=== PATIENT | female | born 1985 | race Caucasian/White ===

== ENCOUNTER 2019-10-28 20:00 | Outpatient (CLI) | payer MEDICAID, SELFPAY | END 2019-10-28 20:01 | disposition home or self-care (01) | LOC: SLEEP 10-29 09:24 | PROVIDERS: Family Provider Family Medicine; PCP Family Medicine; Visit Provider Registered Nurse | DX: G47.33 Obstructive sleep apnea (adult) (pediatric) (principal) | CPT/HCPCS: 95810; 95811 ==

== ENCOUNTER → 2020-09-06 09:08 | Outpatient (BNVA) | payer BC, MEDICAID, SELFPAY | PROVIDERS: Family Provider Family Medicine; PCP Family Medicine; Visit Provider Family Medicine | DX: R53.83 Other fatigue (principal); Z83.49 Family history of other endocrine, nutritional and metabolic diseases; Z13.6 Encounter for screening for cardiovascular disorders; R53.82 Chronic fatigue, unspecified; F41.1 Generalized anxiety disorder; G47.33 Obstructive sleep apnea (adult) (pediatric); Z68.38 Body mass index [BMI] 38.0-38.9, adult; R03.0 Elevated blood-pressure reading, without diagnosis of hypertension; F17.210 Nicotine dependence, cigarettes, uncomplicated | CPT/HCPCS: 80053; 80061; 82607; 82652; 84443; 85025 ==

== ENCOUNTER 2021-07-29 08:19 | Emergency (ER) | payer BC, MEDICAID, SELFPAY ==
[2021-07-29 08:31] VITALS: PULSE 121; RESP 26; TEMP 36.4; O2SAT 96; BMI 33.3
--- NOTE | 2021-07-29 08:53 | W.ED.BACK ---
HPI - Back Pain/Injury General: Chief Complaint: Back Pain/Injury Stated Complaint: BACK INJURY YESTERDAY Time Seen by Provider: 07/29/21 08:45 Source: patient Mode of arrival: ambulatory Limitations: no limitations History of Present Illness: HPI Narrative: 35-year-old female presents to the ER today for low back pain x2 days. Patient reports about 10 years ago she injured her back when carrying a stroller and has had pain off and on since. Patient reports she has always been able to work through the pain however about 2 days ago she felt a twinge of pain and then last night was walking quickly and felt sudden sharp pain in her low back. Patient reports since then she has been unable to walk without severe pain pain. Patient reports she was unable to get out of bed this morning and almost had to call an ambulance. She denies any pain radiating down either leg. Patient denies any loss of bowel or bladder control. Patient denies any numbness. Patient reports pain is located in the low back and does not radiate to the right or to the left. Patient took [id number] medications with minimal relief. MD elicited complaint: back pain Pertinent past history: prior back pain Onset (ago): day(s) Timing: constant Severity: severe Similar Symptoms Previously: Yes Quality: sharp and aching Location: lumbar spine and sacrum Radiation: none Exacerbating factors: movement, sitting upright and walking Relieving factors: none Context: unknown Associated symptoms: Deny abdominal pain, chills, fever(s), nausea or vomiting Treatments prior to arrival: NSAIDS and acetaminophen Review of Systems General: Reports: 10 or more systems reviewed and unremarkable except in HPI and below Const: Denies: fever(s), chills or body aches ENMT: Denies: throat pain, nasal discharge or nasal congestion Card: Denies: chest pain or palpitations Resp: Denies: dyspnea, productive cough or wheezing GI: Denies: abdominal pain, nausea, vomiting, diarrhea or constipation : Denies: flank pain, difficulty voiding or urinary incontinence Musc: Reports: back pain; Denies: neck pain, extremity pain or joint pain Skin/Breast: Denies: rash or pruritus Neuro: Denies: headache(s), numbness in extremities or dizziness PFS ED PFSH: Medical History Borderline personality disorder Chronic post-traumatic stress disorder Generalized anxiety disorder Major depressive disorder, recurrent, moderate Nicotine dependence, cigarettes, uncomplicated Obstructive sleep apnea (adult) (pediatric) Panic attacks Psychiatric care Social History Smoking and tobacco status: never smoked Current gender identity: Female Female Reproductive History: Spontaneous abortions: No Physical Exam Const: COMMON NORMALS: patient oriented x3, no limitations and healthy appearing GENERAL APPEARANCE: not comfortable (pt appears uncomfortable and tearful) NUTRITIONAL APPEARANCE: obese HENMT: COMMON NORMALS: normocephalic, external ears normal and Normal external nose present HEAD & SCALP: normocephalic NOSE: Normal external nose present EXTERNAL EAR: Yes external ears normal Eye: COMMON NORMALS: conjunctivae normal GENERAL EYE: appearance normal, both eyes and all related structures CONJUNCTIVA: Yes conjunctivae normal Lymph: LYMPHATIC: no lymphadenopathy noted Resp: COMMON NORMALS: normal respiratory effort EFFORT & INSPECTION: Yes able to speak in complete sentences Cardio: COMMON NORMALS: regular rate and regular rhythm RATE: regular rate RHYTHM: regular rhythm GI: COMMON NORMALS: Soft to palpation and non-tender PALPATION: Yes Soft to palpation Back/Pelvis: LUMBAR SPINE/LOWER BACK: Yes normal to inspection, Yes ROM limited, Yes pain with ROM, Yes lumbar spinal tenderness, Yes paraspinal muscle tenderness (mild) Lumbar paraspinal muscle tenderness: bilateral, No paraspinal muscle spasm and Yes straight leg raise negative bilaterally Extremity: COMMON NORMALS: full ROM Neuro: COMMON NORMALS: patient oriented x3, moves all extremities and no sensory deficits noted Psych: COMMON NORMALS: mental status grossly normal, Normal thought process present, cooperative and normal affect THOUGHT PROCESS: Normal thought process present Skin: COMMON NORMALS: no rashes or lesions noted GENERAL SKIN EXAM: no rashes or lesions noted Course ED course: Patient presents to the ER today for acute low back pain x2 days. Patient has a history of some low back pain but this is significantly worse. Patient denies any neurological deficits at this time. We'll get x-ray of the low back as she has never had imaging done. We'll give patient Toradol and muscle relaxer in the ER for pain. Vital Signs: Vital signs: Vital Signs Temperature 98.6 F 07/29/21 09:04 Pulse Rate 99 07/29/21 09:04 Respiratory Rate 22 H 07/29/21 09:04 Blood Pressure 139/91 07/29/21 09:04 Pulse Oximetry 97 07/29/21 09:04 MDM - Back Pain/Injury MDM Narrative: Medical decision making narrative: 35-year-old female presents to the ER today for acute low back pain x2 days. Patient injured back about 10 years ago and has had pain off and on but nothing to this extent. Patient is neurologically intact with no numbness, no tingling, no loss of bowel or bladder control. Patient is tender over the spine of the L-spine and sacrum. No radiating pain is noted. Imaging is negative for acute injury however patient is noted to have significant degenerative disc disease from L4-S1. Patient given Toradol and Norflex in the ER for pain. We'll send patient home with anti-inflammatory, muscle relaxer, steroid. Patient to follow-up with PCP in 1 week to discuss further imaging. Return to the ER with any new or worsening symptoms including neurological symptoms. Patient verbalized understanding and is in agreement with this treatment plan. Imaging Data^: Other Xray: Radiologist's impression: [facility] [place] [address] XRay Report Signed Patient: Peggy Alvares Unit #: [id number] : 1985 Age/Sex: 35 / F ADM Date: 07/29/21 Loc: ER Room/Bed: Attending Dr: Ordering Provider/Ordering MD: Karine Sommer Date of Service: 07/29/21 Procedure(s): XR lumbar spine 2-3V* [id number] Accession Number(s): [id number] Report Number: [id number] PROCEDURE INFORMATION: Exam: XR Lumbosacral Spine Exam date and time: 07/29/2021 9:12 AM Age: 35 years old Clinical indication: Low back pain; Additional info: Acute low back pain TECHNIQUE: Imaging protocol: XR of the lumbosacral spine. Views: 2 or 3 views. COMPARISON: No relevant prior studies available. FINDINGS: Bones/joints: No fracture, malalignment or other acute abnormalities are seen in the lumbar spine. Chronic degenerative changes are present predominantly from L4-S1 with disc space narrowing sclerosis and osteophytes. Soft tissues: Unremarkable. XR/XR lumbar spine 2-3V* [id number] IMPRESSION: DJD predominantly from L4-S1. No acute abnormality. Radiation Dose CTDIVOL = (mGy): DLP = (mGy-cm) Dictated By: Lino Brown Signed By: Lino Brown Signed Date/Time: 07/29/21 0952 Discharge Plan Discharge Patient Disposition: Home Clinical Impression: Degenerative disc disease, lumbar Acute bilateral low back pain Qualifiers: Sciatica presence: without sciatica Qualified Code(s): M54.50 - Low back pain, unspecified Condition: Stable Prescriptions: New methocarbamol 750 mg tablet 750 mg PO Q8H Qty: 21 RF: 0 Mobic 15 mg tablet 15 mg PO DAILY Qty: 14 RF: 0 Medrol (Leonides) 4 mg tablets,dose pack See Rx Instructions PO .COMPLEX Qty: 21 RF: 0 No Action albuterol sulfate [Proventil HFA] 90 mcg/actuation HFA aerosol inhaler 2 puff INHALATION QID RF: 0 Discharge Orders: Discharge ED (Routine); Ordered 07/29/21 Ordered By: Karine Sommer Referrals: Kena Reid MD [Primary Care Provider] - Discharge Diet: Usual diet Discharge Activity: Limit activity as instructed Patient Instructions: Opioid Safety Activity Restrictions/Additional Instructions: Take medications as prescribed. Recommend rest and stretching. Conservative treatment recommended including warm, moist heat alternating with ice. Topical muscle rub recommended but do not use with heat or ice. Follow-up with PCP in 7 to 10 days for further imaging. Return to the ER with any new or worsening symptoms. Coding Level of Care Code ED Engineering Technician for Jerod Fwd Exam Comprehensive
[2021-07-29 09:04] VITALS: BP 139/91; PULSE 99; RESP 22; TEMP 37; O2SAT 97
--- NOTE | 2021-07-29 09:12 | XRR_ITS ---
PROCEDURE INFORMATION: Exam: XR Lumbosacral Spine Exam date and time: 07/29/2021 9:12 AM Age: 35 years old Clinical indication: Low back pain; Additional info: Acute low back pain TECHNIQUE: Imaging protocol: XR of the lumbosacral spine. Views: 2 or 3 views. COMPARISON: No relevant prior studies available. FINDINGS: Bones/joints: No fracture, malalignment or other acute abnormalities are seen in the lumbar spine. Chronic degenerative changes are present predominantly from L4-S1 with disc space narrowing sclerosis and osteophytes. Soft tissues: Unremarkable. XR/XR lumbar spine 2-3V* [id number] IMPRESSION: DJD predominantly from L4-S1. No acute abnormality. Radiation Dose CTDIVOL = (mGy): DLP = (mGy-cm)
[2021-07-29] MEDS: orphenadrine 30 mg/mL Inj 2 mL IM (09:21)
[2021-07-29] MEDS: ketorolac 30 mg/mL INJ IM (09:22)
== END 2021-07-29 10:31 | disposition home or self-care (01) ==
PROVIDERS: Emergency Provider Physician Assistant; PCP Family Medicine
DX: M51.36 Other intervertebral disc degeneration, lumbar region (principal)
CPT/HCPCS: 72100; 96372; 99283; 99291; J1885; J2360

== ENCOUNTER → 2021-08-08 10:58 | Outpatient (BNVA) | payer BC, MEDICAID, SELFPAY | PROVIDERS: PCP Family Medicine; Referring Provider Physician Assistant; Visit Provider Orthopaedic Surgery | DX: M54.9 Dorsalgia, unspecified (principal); M47.816 Spondylosis without myelopathy or radiculopathy, lumbar region | CPT/HCPCS: 72120 ==

== ENCOUNTER 2021-08-21 08:47 | Outpatient (CLI) | payer BC, MEDICAID, SELFPAY ==
--- NOTE | 2021-08-21 | MR_ITS ---
WS: [id number] MRI HEAD WITH CONTRAST TECHNIQUE: Sagittal T1, T2 axial, T2 axial FLAIR, axial susceptibility weighted imaging, axial diffus ion weighted images, and coronal T2 images were obtained. Pre and post-T1 axial and post T1 coronal i mages. ADC and FSPGR images. CLINICAL INFORMATION: NAUSEA AND PHOTOPHOBIA COMPARISON: None. FINDINGS: No evidence of restricted diffusion to suggest acute ischemia. Ventricular system and basal cisterns are patent. No suspicious intracranial signal abnormalities. Normal posterior fossa. Normal vascular flow voids skull base. No extra-axial fluid collections. No evidence of mass or mass effect. No hemosiderin on suddenly weighted images. Normal optic chiasm and pituitary infundibulum. Temporal lobes and hippocampal formations are normal in appearance. Mild mucosal thickening ethmoid air cells and left sphenoid sinus. Small amount of fluid left sphenoid sinus. Slight mucosal thickening left ma stoid tip. No abnormal intracranial enhancement. Normal dural venous sinuses. MR/MR head wo/w con [id number] IMPRESSION: 1. No evidence of restricted diffusion to suggest acute ischemia. 2. No suspicious intracranial signal abnormalities. Normal abdi-white differen tiation. 3. No abnormal intracranial enhancement. 4. No hemosiderin on susceptibly weighted images. 5. Mild mucosal thickening in the ethmoid air cells and sphenoid sinuses. Smal l amount of fluid in the left sphenoid sinus.
[2021-08-21] MEDS: gadobenate dimeglumine 20 mL vial IV (10:07)
== END 2021-08-21 08:48 | disposition home or self-care (01) ==
LOC: RADSHAW 08:49
PROVIDERS: PCP Physician Assistant; Visit Provider Physician Assistant
DX: G43.909 Migraine, unspecified, not intractable, without status migrainosus (principal); R11.0 Nausea; H53.149 Visual discomfort, unspecified
CPT/HCPCS: 70553; A9577

== ENCOUNTER → 2021-11-23 11:48 | Outpatient (BNVA) | payer BC, MEDICAID, SELFPAY | PROVIDERS: PCP Physician Assistant; Visit Provider Specialist | DX: G43.711 Chronic migraine without aura, intractable, with status migrainosus (principal); H53.483 Generalized contraction of visual field, bilateral | CPT/HCPCS: 99204 ==

== ENCOUNTER → 2022-01-24 08:25 | Outpatient (BNVA) | payer BC, MEDICAID, SELFPAY | PROVIDERS: PCP Physician Assistant; Visit Provider Registered Nurse | DX: Z79.899 Other long term (current) drug therapy (principal); F41.1 Generalized anxiety disorder; G47.33 Obstructive sleep apnea (adult) (pediatric); F33.1 Major depressive disorder, recurrent, moderate | CPT/HCPCS: 80053; 82306; 82607; 83540; 84443; 85025 ==

== ENCOUNTER → 2022-06-21 16:30 | Outpatient (BNVA) | payer BC, SELFPAY | PROVIDERS: PCP Physician Assistant; Visit Provider Emergency Medicine | DX: R68.89 Other general symptoms and signs (principal) | CPT/HCPCS: 87071; 87400; 87426; 87880 ==

== ENCOUNTER → 2023-06-17 09:24 | Outpatient (BNVA) | payer BC, MEDICAID, SELFPAY | PROVIDERS: PCP Physician Assistant; Visit Provider Nurse Practitioner Family | DX: G43.909 Migraine, unspecified, not intractable, without status migrainosus (principal); M25.50 Pain in unspecified joint; S00.461A Insect bite (nonvenomous) of right ear, initial encounter; W57.XXXA Bitten or stung by nonvenomous insect and other nonvenomous arthropods, initial encounter | CPT/HCPCS: 86618; 86666; 86757 ==

== ENCOUNTER → 2024-07-01 09:29 | Outpatient (BNVA) | payer BC, MEDICAID, SELFPAY | PROVIDERS: PCP Physician Assistant; Visit Provider Nurse Practitioner | DX: R52 Pain, unspecified (principal) | CPT/HCPCS: 87400; 87426 ==